=== PATIENT | female | born 1990 ===

== ENCOUNTER 2023-09-03 14:45 | Inpatient (IN) | payer OTHER ==
[~2023-09-03] VITALS: Ht 165.1 cm; Wt 135.2 kg
[2023-09-15] MEDS ORDERED: PRENATAL TABLE1 EAC1 PO (07:59)
[2023-09-15 08:15] LABS: HEMATOCRIT 34.8 % (36.0-45.00); HEMOGLOBIN 11.8 g/dL (12.0-15.00); MEAN CORPUSCULAR HEMOGLOBIN 26.8 pg (27.00-32.0); MEAN CORPUSCULAR HGB CONC 33.9 g/dl (32.0-36.0); PLATELET COUNT 191 K/uL (150-450)
[2023-09-15 08:46] LABS: INR < 0.93; PARTIAL THROMBOPLASTIN TIME 28.7 SECONDS (22.0-34.0); PROTHROMBIN TIME 9.4 SECONDS (9.0-11.5)
[2023-09-15 08:49] LABS: ALBUMIN 2.6 gm/dL (3.4-5.0); BILIRUBIN TOTAL 0.21 mg/dL (0.3-1.2); CALCIUM 9.2 mg/dL (8.5-10.1); CREATININE SERUM 0.43 mg/dL (0.55-1.02); GFR 171.26; GLOBULINA 3.5 G/DL (2.4-3.5); POTASSIUM 4.57 mEq/L (3.5-5.1); TOTAL PROTEIN 6.1 gm/dL (6.4-8.2)
[2023-09-15] MEDS ORDERED: OXYTOCIN 500 ML IV SCH (09:15)
[2023-09-15] MEDS ORDERED: OXYTOCIN 1,000 ML IV ONE (15:00)
[2023-09-15] MEDS ORDERED: CHLORHEXIDINE GLUCONATE 120 ML BOTTLE TOP ONE (15:00)
[2023-09-15] MEDS ORDERED: ERYTHROMYCIN BASE 1 GM TUBE OP ONE (15:00)
[2023-09-15] MEDS ORDERED: LIDOCAINE HCL 1% 10ML VIAL PERCUT ONE (15:00)
[2023-09-15] MEDS ORDERED: IBUprofen 400 MG TABLET PO PRN (15:00)
[2023-09-15] MEDS ORDERED: DOCUSATE CALCIUM 240 MG CAPSULE PO SCH (17:00)
== END 2023-09-17 14:25 | disposition home or self-care (01) | DRG 807 ==
LOC: OB/GYN 09-13 14:45 → LDR 09-15 05:38 → OB/GYN 09-15 14:59
PROVIDERS: ADMIT Obstetrics & Gynecology; ATTEND Obstetrics & Gynecology
PROC: 10E0XZZ Delivery of Products of Conception, External Approach (ICD-10-PCS; principal; 2023-09-15)
PROC: 0UQMXZZ Repair Vulva, External Approach (ICD-10-PCS; 2023-09-15)
PROC: 0UQG7ZZ Repair Vagina, Via Natural or Artificial Opening (ICD-10-PCS; 2023-09-15)
PROC: 4A1HXCZ Monitoring of Products of Conception, Cardiac Rate, External Approach (ICD-10-PCS; 2023-09-15)
DX: O70.0 First degree perineal laceration during delivery (principal); Z37.0 Single live birth; O71.82 Other specified trauma to perineum and vulva; Z3A.40 40 weeks gestation of pregnancy

== ENCOUNTER 2023-09-13 11:47 | Outpatient (CLI) | payer OTHER | END 2023-09-13 13:01 | disposition home or self-care (01) | LOC: NST 11:47 | PROVIDERS: ATTEND Obstetrics & Gynecology | DX: Z34.83 Encounter for supervision of other normal pregnancy, third trimester (principal) ==